=== PATIENT | female | born 2005 ===

== ENCOUNTER 2025-09-09 00:08 | Emergency (ER) | payer OTHER, SELFPAY ==
[2025-09-09 00:11] VITALS: BP 111/71
--- NOTE | 2025-09-09 00:27 | ED.GENMED ---
History of Present Illness
General
Chief Complaint: Musculo-Skeletal Complaint
Source: patient
Time Seen by Provider: 09/09/25 00:19
History of Present Illness
History of Present Illness:
20-year-old female presents to the emergency room complaining of right shoulder pain. Patient states she rolled over in bed and felt a pop and instant pain in her right shoulder. The pain has been decreasing in severity since the initial event.
Patient is right-hand dominant. She was concerned she may have dislocated her shoulder. She has not had any previous shoulder injuries or dislocations.
Phy Exam
Physical Exam
Physical Exam:
General: Awake, Alert, Oriented X3. No acute distress.
Vitals: unremarkable
Head: Atraumatic
Eyes: Pupils equal, EOMI
Throat: Airway intact, no exudates
Neck: Trachea midline
Abd: Soft, Nontender, No pulsatile mass
Neuro: Nonfocal
Extremities: pulses equal b/l, no edema. No deformity noted to the right shoulder. Range of motion is mostly intact though she does have pain with abduction past 90 degrees and extension past 90 degrees. Neurovascularly intact.
Course
Orders/Labs/Results
Orders:
Orders
09/09/25 00:16
Shoulder, Right, Trauma [CR Shoulder, Trauma - Right] Urgent
Comment:
Reason For Exam: turned in bed, felt a pop, area is painful
Vital Signs
Initial and Last Documented VS:
Initial Vital Signs
Temp Pulse Resp BP Pulse Ox
98.5 F 73 14 111/71 100
09/09/25 00:11 09/09/25 00:11 09/09/25 00:11 09/09/25 00:11 09/09/25 00:11
Last Documented Vital Signs
Temp Pulse Resp BP Pulse Ox
98.5 F 73 14 111/71 100
09/09/25 00:11 09/09/25 00:11 09/09/25 00:11 09/09/25 00:11 09/09/25 00:31
MDM/Problems Addressed
Differential Diagnosis Includes:
Subluxation of the right shoulder, shoulder sprain, dislocation of the shoulder
MDM/Problems Addressed:
Patient presents after having sudden onset of right shoulder pain. Shoulder x-ray shows no acute disease. I suspect the patient had a subluxation of her shoulder which spontaneously reduced. No further treatment required at this time.
*Radiology
Radiology exam reviewed: preliminary read by ED provider (No acute abnormality on my review of the patient's right shoulder x-ray)
*Pulse Oximetry
SaO2: 100
Oxygen Mode of Delivery: Room air
Patient hypoxic: no
*Critical Care Note
Total Time (30-74mins, 75-104mins- exclusive of procedures): Not Applicable
ED Attending Note
-
Portions of this chart may have been created with voice recognition software.� Occasional wrong word or��sound alike� substitutions may have occurred due to the inherent limitations of voice recognition software.
Discharge Plan
Departure
Patient Disposition: Home (Routine Discharge)
Date of Disposition: 09/09/25
Time of Disposition: 00:30
Patient with high blood pressure during this ER visit?: No
Condition: Good
Discharge Problem:
Shoulder subluxation, right
Instructions: Shoulder Sprain ED
Interventions
Interventions:
*General Assessment Last Done: 09/09/25 00:27
*Neglect/Abuse Screening Last Done: 09/09/25 00:27
*ED COVID-19 Vaccine History Last Done: 09/09/25 00:27
*ED Influenza Vaccine History Last Done: 09/09/25 00:27
[facility] Risk Assessment Tool Last Done: 09/09/25 00:27
*Risk Screen - Suicide (C-SSRS) Last Done: 09/09/25 00:11
ED-Musculoskeletal Assessment Last Done: 09/09/25 00:27
Discharge Date and Time
Print Language: SERBIAN
== END 2025-09-09 00:44 | disposition home or self-care (01) ==
LOC: EMR 00:08
PROVIDERS: EMERGENCY PHYSICIAN Emergency Medicine
DX: S43.001A Unspecified subluxation of right shoulder joint, initial encounter (principal); X50.1XXA Overexertion from prolonged static or awkward postures, initial encounter
CPT/HCPCS: 99283; 73030